=== PATIENT | female | born 1930 | race Caucasian/White ===

== ENCOUNTER 2019-11-28 14:10 | Inpatient (IN) | payer MEDICARE ==
[~2019-11-28] VITALS: Ht 142.2 cm; Wt 36.3 kg
--- NOTE | 2019-11-28 14:20 | NUR ---
Dr Jones at the bedside for MSE.
[2019-11-28] MEDS ORDERED: SENN-261 PO (14:28)
[2019-11-28] MEDS ORDERED: DULO30CA2 PO (14:28)
[2019-11-28] MEDS ORDERED: ACET-2154 PO (14:28)
[2019-11-28] MEDS ORDERED: MENT4ADH6 TP (14:28)
[2019-11-28] MEDS ORDERED: LORA-258 PO (14:28)
[2019-11-28] MEDS ORDERED: ONDANSETRON 4 MG/2 ML VIAL ONE ×2 (14:29→16:45)
[2019-11-28] MEDS ORDERED: HYDROMORPHONE 1 MG/1 ML DISP.SYRIN ONE ×2 (14:29→16:45)
[2019-11-28] MEDS ORDERED: ONDANSETRON 4 MG/2 ML VIAL IM ONE ×2 (14:30→16:45)
[2019-11-28] MEDS ORDERED: HYDROMORPHONE 1 MG/1 ML DISP.SYRIN IM ONE ×2 (14:30→16:45)
--- NOTE | 2019-11-28 14:30 | NUR ---
Pt refused to change to hospital gown, stating "no, I'm too cold".
[2019-11-28] MEDS ORDERED: IV NORMAL SALINE 1000 ML BAG IV ONE (16:00)
--- NOTE | 2019-11-28 16:08 | NUR ---
PT's daughter refused for Pt to have a HL. Dr Jones made aware.
[2019-11-28 16:18] LABS: BASOPHILS # (AUTO) 0.1 K/uL (0.0-8.0); BASOPHILS % (AUTO) 0.7 % (0.0-2.0); EOSINOPHILS % (AUTO) 0.3 % (0.0-7.0); HEMATOCRIT 37.2 % (31.2-41.9); HEMOGLOBIN 12.4 g/dL (10.9-14.3); LYMPHOCYTES # (AUTO) 0.8 K/uL (20.0-40.0); LYMPHOCYTES % (AUTO) 9.9 % (20.5-51.5); MEAN CORPUSCULAR HEMOGLOBIN 31.2 uug (24.7-32.8); MEAN CORPUSCULAR HGB CONC 33 g/dL (32.3-35.6); MEAN CORPUSCULAR VOLUME 93.9 fL (75.5-95.3); MONOCYTES # (AUTO) 0.7 K/uL (2.0-10.0); NEUTROPHILS # (AUTO) 6.9 K/uL (1.8-8.9); NEUTROPHILS % (AUTO) 81.1 % (38.5-71.5); PLATELET COUNT (AUTO) 203 K/uL (179-408); RED BLOOD CELL COUNT(AUTO) 3.96 MIL/uL (3.63-4.92); WHITE BLOOD COUNT (AUTO) 8.5 K/uL (3.8-11.8)
[2019-11-28 16:22] LABS: CREATININE 1.2 mg/dL (0.6-1.3); POTASSIUM 3.3 mmol/L (3.5-5.1)
[2019-11-28 16:27] LABS: BILIRUBIN,DIRECT 0.2 mg/dL (0.0-0.2); BILIRUBIN,TOTAL 0.6 mg/dL (0.2-1.0)
--- NOTE | 2019-11-28 16:56 | NUR ---
PT's daughter requested for Pt to stay for "a short while in ER so she will work on her Tx to rehab"
--- NOTE | 2019-11-28 17:34 | NUR ---
Patient is resting comfortably in bed with eyes closed, NAD noted.
--- NOTE | 2019-11-28 18:45 | NUR ---
89 year old female received from er via gurney to room 314,pt is axox1,call light with in tran , called for admission orders
[2019-11-28] MEDS ORDERED: SENNOSIDES 1 TABLET PO PRN (19:15)
[2019-11-28] MEDS ORDERED: ONDANSETRON 4 MG/2 ML VIAL IV PRN (19:15)
[2019-11-28 19:27] VITALS: BP 124/65
[2019-11-28 20:00] VITALS: BP 158/82
--- NOTE | 2019-11-28 20:00 | NUR ---
Patient received into care, laying in bed, resting comfortably. Pt is alert/oriented x1 and confused as to where she is at. Pt has no IV cath site and is wearing street clothes, which per AM shift nurse, pt refused to remove. All safety, allergy, isolation, and fall precaution measures are in place. Call light and personal items are within reach. Will continue to monitor and assess.
[2019-11-28] MEDS: DOCUSATE SODIUM 250 MG CAPSULE PO SCH (21:22)
[2019-11-28] MEDS: HYDROCODONE/APAP 5-325MG TABLET PO PRN (21:22)
[2019-11-29] VITALS: BP 157/61
[2019-11-29 04:00] VITALS: BP 152/80
--- NOTE | 2019-11-29 05:00 | NUR ---
Patient slept intermittently throughout night after receiving prescribed analgesics for left shoulder fracture. Patient is alert/oriented x1, [place] in BL ears, and confused as to where she is and why she is here. This nurse used reorientation and redirection to assist pt to be more comfortable and to reassure her. Pt is able to walk with assistance to use bathroom. All safety, fall, and allergy precautions remain in place. Call light and personal items remain within reach at all times.
[2019-11-29] MEDS: PANTOPRAZOLE SODIUM 40 MG TABLET.DR PO SCH (06:24)
[2019-11-29 06:27] LABS: BASOPHILS % (AUTO) 0.4 % (0.0-2.0); EOSINOPHILS % (AUTO) 0.4 % (0.0-7.0); HEMATOCRIT 35.5 % (31.2-41.9); HEMOGLOBIN 12.2 g/dL (10.9-14.3); LYMPHOCYTES # (AUTO) 1.4 K/uL (20.0-40.0); LYMPHOCYTES % (AUTO) 15.1 % (20.5-51.5); MEAN CORPUSCULAR HEMOGLOBIN 32.1 uug (24.7-32.8); MEAN CORPUSCULAR HGB CONC 34 g/dL (32.3-35.6); MEAN CORPUSCULAR VOLUME 93.6 fL (75.5-95.3); MONOCYTES # (AUTO) 0.9 K/uL (2.0-10.0); MONOCYTES % (AUTO) 10.4 % (0.0-11.0); NEUTROPHILS # (AUTO) 6.6 K/uL (1.8-8.9); NEUTROPHILS % (AUTO) 73.7 % (38.5-71.5); PLATELET COUNT (AUTO) 208 K/uL (179-408); RED BLOOD CELL COUNT(AUTO) 3.79 MIL/uL (3.63-4.92)
[2019-11-29 06:55] LABS: THYROID STIMULATING HORMONE 3.294 mIU/mL (0.358-3.740)
[2019-11-29 07:17] LABS: BILIRUBIN,TOTAL 0.9 mg/dL (0.2-1.0); CREATININE 1.1 mg/dL (0.6-1.3); MAGNESIUM 1.7 mg/dL (1.8-2.4); PHOSPHOROUS 2.5 mg/dL (2.5-4.9); POTASSIUM 3.7 mmol/L (3.5-5.1)
--- NOTE | 2019-11-29 07:20 | NUR ---
AWAKE ALERT AND VERBALLY RESPONSIVE BUT CONFUSED X3, C/O OF PAIN LEFT SHOULDER WITH SLING. WILL MEDICATE WITH PRN MEDS. SR ON MONITOR
[2019-11-29] MEDS: DULOXETINE 30 MG CAPSULE.DR PO SCH (08:38)
[2019-11-29] MEDS: HYDROCODONE/APAP 5-325MG TABLET PO PRN ×2 (08:41→16:59)
--- NOTE | 2019-11-29 10:31 | NUR ---
SEEN BY DR LEO FOR ORTHO CONSULT SAID NO NEED FOR SURGERY, MAINTAIN LEFT ARM SLING FOR NOW
[2019-11-29] MEDS: MAGNESIUM SULFATE/D5W 100 ML IV SCH ×2 (11:00→11:58)
--- NOTE | 2019-11-29 11:36 | NUR ---
tried to reach Jett Lujan for pt refusing iv start for iv magnesium. Awaiting call back
[2019-11-29 11:55] VITALS: BP 116/57
[2019-11-29] MEDS ORDERED: MAGNESIUM OXIDE 400 MG TABLET PO ONE (12:00)
[2019-11-29] MEDS: ACETAMINOPHEN 325 MG TABLET PO PRN ×2 (14:16→21:12)
[2019-11-29] MEDS: LORAZEPAM 0.5 MG TABLET PO PRN ×2 (14:16→21:12)
--- NOTE | 2019-11-29 14:30 | NUR ---
SEEN BY PHYSICAL THERAPY SEE NOTES
[2019-11-29 15:43] VITALS: BP 130/57
--- NOTE | 2019-11-29 15:57 | NUR ---
LEFT ARM SLING MAINTAINED AT ALL TIMES, CONTINUE WITH PAIN MANAGEMENT. LEFT ARM AND SHOULDER REMAINS BRUISED FROM THE FALL. ABLE TO MOVE FINGERS, DENIES NUMBNESS. AFEBRILE
[2019-11-29 20:00] VITALS: BP 149/94
[2019-11-29] MEDS: DOCUSATE SODIUM 250 MG CAPSULE PO SCH (21:12)
[2019-11-30] VITALS: BP 120/66
--- NOTE | 2019-11-30 | NUR ---
patient refused v/s will follow up
[2019-11-30 04:00] VITALS: BP 132/51
--- NOTE | 2019-11-30 04:16 | NUR ---
PATIENT RESTING COMFORTABLY. AAOX1. NO S/S OF ACUTE DISTRESS. V/S STABLE. SAFETY MEASURES IN PLACE. NSR ON TELE MONITOR. WILL CONTINUE TO MONITOR AND ASSESS.
[2019-11-30 06:04] LABS: BASOPHILS % (AUTO) 0.4 % (0.0-2.0); EOSINOPHILS # (AUTO) 0.1 K/uL (0.0-0.7); EOSINOPHILS % (AUTO) 0.7 % (0.0-7.0); HEMATOCRIT 32.4 % (31.2-41.9); HEMOGLOBIN 10.9 g/dL (10.9-14.3); LYMPHOCYTES # (AUTO) 0.9 K/uL (20.0-40.0); LYMPHOCYTES % (AUTO) 9.9 % (20.5-51.5); MEAN CORPUSCULAR HEMOGLOBIN 31.6 uug (24.7-32.8); MEAN CORPUSCULAR HGB CONC 34 g/dL (32.3-35.6); MEAN CORPUSCULAR VOLUME 94.2 fL (75.5-95.3); MONOCYTES # (AUTO) 1.3 K/uL (2.0-10.0); MONOCYTES % (AUTO) 14.1 % (0.0-11.0); NEUTROPHILS # (AUTO) 6.8 K/uL (1.8-8.9); NEUTROPHILS % (AUTO) 74.9 % (38.5-71.5); PLATELET COUNT (AUTO) 175 K/uL (179-408); RED BLOOD CELL COUNT(AUTO) 3.43 MIL/uL (3.63-4.92); WHITE BLOOD COUNT (AUTO) 9.1 K/uL (3.8-11.8)
[2019-11-30] MEDS: PANTOPRAZOLE SODIUM 40 MG TABLET.DR PO SCH (06:11)
[2019-11-30 06:18] LABS: CREATININE 1.3 mg/dL (0.6-1.3); MAGNESIUM 1.9 mg/dL (1.8-2.4)
[2019-11-30 06:31] LABS: POTASSIUM 3.3 mmol/L (3.5-5.1)
[2019-11-30 07:54] LABS: *BILIRUBIN,URIN 2+ (NEGATIVE); *BLOOD, URINE NEGATIVE (NEGATIVE); *CLARITY,URINE CLEAR (CLEAR); *COLOR,URINE DARK YELLOW (YELLOW); *KETONES,URINE TRACE (NEGATIVE); LEUKOCYTE ESTERASE ,URINE NEGATIVE (NEGATIVE); NITRITE, URINE NEGATIVE (NEGATIVE); UGLUCOSE NEGATIVE (NEGATIVE)
[2019-11-30 08:00] VITALS: BP 148/79
--- NOTE | 2019-11-30 08:00 | NUR ---
Received pt in bed awake AOx1 on RA with no SOB or distress noted at this time. Left shoulder on a sling, bruise noted, and pt gets agitated if left arm is moved or touched, complained of pain on left shoulder. Refused IV insertion. Bed locked in lowest position with siderails 2x up. Bed alarm on, call light within reach. Will monitor
[2019-11-30] MEDS: DULOXETINE 30 MG CAPSULE.DR PO SCH (09:20)
[2019-11-30] MEDS: HYDROCODONE/APAP 5-325MG TABLET PO PRN ×2 (09:20→18:33)
[2019-11-30] MEDS ORDERED: POTASSIUM CHLORIDE 20 MEQ TAB.PRT.SR PO ONE (09:30)
[2019-11-30 11:40] LABS: BACTERIA,URINE FEW /HPF (NONE SEEN); RBC,URINE 0-3 /HPF (0-3); SQUAMOUS EPITHELIAL CELL,UR MODERATE /HPF (NONE SEEN); WBC,URINE 0-3 /HPF (0-3)
[2019-11-30 12:00] VITALS: BP 124/60
[2019-11-30 16:00] VITALS: BP 132/70
--- NOTE | 2019-11-30 16:25 | NUR ---
Pt had an unwitnessed fall. Checked for any injury. Able to move bilateral legs and right arm. Left arm in a sling and complained of pain. Denied chest pain, and head pain. Bed alarm was on but sound did not go on. Patient confused and can't state what happened that led to the fall. Informed Jett Lujan [employer]TE[employer]CE SUPERVISOR. Will order XR left shoulder.
--- NOTE | 2019-11-30 18:41 | NUR ---
Patient complaining of pain of left shoulder, grasping site, facial grimacing noted. [place] PRN given as ordered and applied ice pack on the area. Bed alarm turned on and reoriented pt not to get out of bed. Bed locked in lowest position with siderails 3x up.
--- NOTE | 2019-11-30 19:20 | NUR ---
Received patient in bed, awake. Patient denies any acute distress but complains of pain on her left shoulder. Vitals stable, on room air saturating WNL. Pt is afebrile. Safety measures in place. Bed low and locked in position. Call light within reach. Bed alarm on. Will continue with the plan of care.
[2019-11-30 20:06] VITALS: BP_SYST 119; BP_SYST 139; BP_DIAS 45; BP_DIAS 59
[2019-11-30] MEDS: DOCUSATE SODIUM 250 MG CAPSULE PO SCH (20:13)
[2019-12-01 04:09] VITALS: BP 134/63
[2019-12-01] MEDS: PANTOPRAZOLE SODIUM 40 MG TABLET.DR PO SCH (06:22)
--- NOTE | 2019-12-01 06:25 | NUR ---
Patient slept throughout the night. Patient is awake and has no s/s of acute distress, but complains of pain on L shoulder. Will assess and give prescribed PRN pain medication. Pt has a sling on L arm. Vitals stable, on room air. Comfort care and needs attended. Pain management and fall precaution maintained. Safety measures in place. Bed low and locked in position, alarm on. Call light within reach. Will endorse to the oncoming nurse accordingly.
[2019-12-01 06:32] LABS: POTASSIUM 3.4 mmol/L (3.5-5.1)
[2019-12-01] MEDS: HYDROCODONE/APAP 5-325MG TABLET PO PRN (06:39)
[2019-12-01] MEDS: DULOXETINE 30 MG CAPSULE.DR PO SCH (08:34)
[2019-12-01 08:40] VITALS: BP 131/62
[2019-12-01] MEDS ORDERED: POTASSIUM CHLORIDE 20 MEQ TAB.PRT.SR PO ONE (09:30)
--- NOTE | 2019-12-01 10:25 | NUR ---
Received patient awake in bed. Patient S/P fall, Continue fall risk precaution. Bed alarm on. Patient continue pain management with good effect. Patient potassium 3.4 replace to 20meq PO, melt with water. not in distress. will continue monitor
--- NOTE | 2019-12-01 11:47 | NUR ---
Patient for discharge to SNF for continuity of care, [facility]. awaiting for olive picker time. will continue monitor
--- NOTE | 2019-12-01 14:28 | NUR ---
Patient discharge to SNF at 228pm, medically stable via ambulance in stretcher with 2 EMT. Documents, result, medication list and discharge summary given to EMT. Report given to nurse veronica in [facility]. Daughter aware. aware.
== END 2019-12-01 14:36 | DRG 543 ==
LOC: ER 14:10 → MEDSURG3 18:32 → TELE3 11-29 08:00 → MEDSURG3 11-30 11:00
PROVIDERS: ADMIT Internal Medicine; ATTEND Nurse Practitioner Acute Care
DX: M80.022A Age-related osteoporosis with current pathological fracture, left humerus, initial encounter for fracture (principal); Z68.1 Body mass index [BMI] 19.9 or less, adult; D68.69 Other thrombophilia; E44.1 Mild protein-calorie malnutrition; F03.90 Unspecified dementia, unspecified severity, without behavioral disturbance, psychotic disturbance, mood disturbance, and anxiety; E87.6 Hypokalemia; H35.30 Unspecified macular degeneration; M19.90 Unspecified osteoarthritis, unspecified site; G89.29 Other chronic pain; Z85.3 Personal history of malignant neoplasm of breast; R73.9 Hyperglycemia, unspecified; W19.XXXA Unspecified fall, initial encounter; Y93.9 Activity, unspecified; Y92.89 Other specified places as the place of occurrence of the external cause; Z90.13 Acquired absence of bilateral breasts and nipples; R91.8 Other nonspecific abnormal finding of lung field; G89.11 Acute pain due to trauma
CPT/HCPCS: 36415; 70030-TC; 71045; 73030; 83690; 83735; 84100; 84443; 85025; 87086; 93005; 93307; A4663; C1758; G0378; J1170; J2405; J7030; J7050; U0003-CS